=== PATIENT | female | born 1960 ===

== ENCOUNTER 2022-03-26 10:40 | Outpatient (CLI) | payer OTHER | END 2022-03-26 11:00 | disposition home or self-care (01) | LOC: MAMO-SONO 10:40 | PROVIDERS: ATTEND General Practice | DX: Z12.31 Encounter for screening mammogram for malignant neoplasm of breast (principal); E66.9 Obesity, unspecified; N64.9 Disorder of breast, unspecified ==

== ENCOUNTER 2025-02-19 10:52 | Outpatient (CLI) | payer OTHER | END 2025-02-19 10:54 | disposition home or self-care (01) | LOC: SONOGRAMA 10:52 | PROVIDERS: ATTEND Pathology Anatomic Pathology | DX: D44.0 Neoplasm of uncertain behavior of thyroid gland (principal); D34 Benign neoplasm of thyroid gland; E04.2 Nontoxic multinodular goiter; E07.89 Other specified disorders of thyroid ==